=== PATIENT | male | born 1990 | race African-American/Black ===

== ENCOUNTER 2017-04-11 22:17 | Emergency (ER) | payer MEDICAID ==
[~2017-04-11] VITALS: Ht 190.5 cm; Wt 72.1 kg
[~2017-04-11 22:17] MED LIST: BISA10SU12; CIPR-217 PO; CYCL5TAB; DOCU100C; METH750T3 PO; OXYB5TAB62; OXYB5TAB62 PO; TEMA30CA PO
[2017-04-11 22:30] VITALS: BP 121/71
== END 2017-04-12 02:53 | disposition home or self-care (01) ==
LOC: ER 22:17
DX: N39.0 Urinary tract infection, site not specified (principal); Z46.82 Encounter for fitting and adjustment of non-vascular catheter
CPT/HCPCS: 51702

== ENCOUNTER 2017-06-24 13:04 | Emergency (ER) | payer MEDICAID ==
[~2017-06-24] VITALS: Ht 190.5 cm; Wt 58.1 kg
[2017-06-24 13:15] VITALS: BP 115/81
== END 2017-06-24 14:20 | disposition left against medical advice (07) ==
LOC: ER 13:04
DX: Z43.3 Encounter for attention to colostomy (principal); Z53.21 Procedure and treatment not carried out due to patient leaving prior to being seen by health care provider

== ENCOUNTER 2017-08-08 08:33 | Emergency (ER) | payer MEDICAID ==
[~2017-08-08] VITALS: Ht 190.5 cm; Wt 59.0 kg
[2017-08-08] MEDS ORDERED: SODIUM CHLORIDE 0.9% 1,000 ML IVB ONE (08:58)
[2017-08-08] MEDS ORDERED: PROMETHAZINE HCL 25 MG/ML 1ML IV PRN (09:00)
[2017-08-08 09:09] LABS: Basophils # (auto) 0 uL; Eosinophils # (auto) 0 uL; Eosinophils % (auto) 0.4 % (0.0-7.0); Hematocrit 31.2 % (41.0-53.0); Hemoglobin 9.8 g/dL (13.5-17.5); Lymphocytes # (auto) 0.5 uL; Mean Corpuscular Hgb Conc. 31.6 g/dL (32.0-36.0); Monocytes # (auto) 0.6 uL; Neutrophils # (auto) 11.1 uL
[2017-08-08 09:11] LABS: Basophils % (auto) 0.3 % (0.0-2.0); Lymphocytes % (auto) 4.3 % (10.0-50.0); Mean Corpuscular Hemoglobin 21.5 pg (28.0-32.0); Nucleated Red Blood Cells % 0.1 %; Platelet Count (auto) 513 10^3/uL (140-450); Red Blood Cells 4.58 10^6/uL (4.5-5.90); Red Cell Distribution Width 17.6 % (11.8-14.3); White Blood Cell 12.3 10^3/uL (4.4-10.8)
[2017-08-08 09:27] LABS: Albumin 2.4 g/dL (3.4-5.0); BUN/Creatinine Ratio 13.2; Calcium 8.7 mg/dL (8.5-10.1); Potassium 3.8 mmol/L (3.5-5.1)
[2017-08-08 09:30] LABS: Bilirubin, Total 0.2 mg/dL (0.2-1.0); Total Protein 9.1 g/dL (6.4-8.2)
[2017-08-08 09:33] LABS: Magnesium 2.1 mg/dL (1.6-2.6)
[2017-08-08 14:14] LABS: Urine Bacteria FEW /hpf (None Seen); Urine Blood TRACE /uL (Negative); Urine Mucus FEW (None Seen); Urine Specific Gravity 1.025 (1.001-1.035); Urine WBC 25 /hpf (0 - 3)
[2017-08-08 14:30] VITALS: BP 116/62
== END 2017-08-08 15:31 | disposition home or self-care (01) ==
LOC: ER 08:33 → EDBD 08:33 → ER 15:31
DX: K52.9 Noninfective gastroenteritis and colitis, unspecified (principal); D50.9 Iron deficiency anemia, unspecified; N39.0 Urinary tract infection, site not specified; E43 Unspecified severe protein-calorie malnutrition; G82.20 Paraplegia, unspecified; Z68.1 Body mass index [BMI] 19.9 or less, adult; Z98.890 Other specified postprocedural states
CPT/HCPCS: 36415; 80053; 81001; 83690; 83735; 85025; 96361; 96374; 99284; J2550; J7030

== ENCOUNTER 2017-12-23 16:58 | Emergency (ER) | payer MEDICAID ==
[~2017-12-23] VITALS: Ht 190.5 cm; Wt 61.7 kg
[2017-12-23 18:30] LABS: Basophils # (auto) 0.1 uL; Eosinophils # (auto) 0.1 uL; Hematocrit 42.5 % (41.0-53.0); Lymphocytes # (auto) 2.3 uL; Mean Corpuscular Hemoglobin 22.3 pg (28.0-32.0); Nucleated Red Blood Cells % 0.1 %; Red Cell Distribution Width 17.7 % (11.8-14.3)
[2017-12-23 18:31] LABS: Basophils % (auto) 1.2 % (0.0-2.0); Eosinophils % (auto) 1.2 % (0.0-7.0); Hemoglobin 13.6 g/dL (13.5-17.5); Lymphocytes % (auto) 37.9 % (10.0-50.0); Mean Corpuscular Volume 69.5 fL (80.0-100.0); Monocytes # (auto) 0.6 uL; Monocytes % (auto) 9.1 % (0.0-12.0); Neutrophils # (auto) 3.1 uL; Neutrophils % (auto) 50.6 % (37.0-80.0); Platelet Count (auto) 405 10^3/uL (140-450); Red Blood Cells 6.13 10^6/uL (4.5-5.90); White Blood Cell 6.2 10^3/uL (4.4-10.8)
[2017-12-23 18:44] LABS: Albumin 3.2 g/dL (3.4-5.0); BUN/Creatinine Ratio 15.5; Bilirubin, Total 0.2 mg/dL (0.2-1.0); Potassium 4.1 mmol/L (3.5-5.1); Total Protein 9.5 g/dL (6.4-8.2)
[2017-12-23 19:53] LABS: Urine Amorphous Crystal FEW /hpf (None Seen); Urine Bacteria MOD /hpf (None Seen); Urine Blood 2+ /uL (Negative); Urine Mucus FEW (None Seen); Urine Specific Gravity 1.026 (1.001-1.035); Urine WBC 265 /hpf (0 - 3); Urine WBC Clumps PRESENT /hpf (None Seen)
[2017-12-24 01:47] VITALS: BP 111/85
== END 2017-12-24 01:50 | disposition home or self-care (01) ==
LOC: ER 16:58
DX: N39.0 Urinary tract infection, site not specified (principal); T83.098A Other mechanical complication of other urinary catheter, initial encounter; J45.909 Unspecified asthma, uncomplicated; Z79.899 Other long term (current) drug therapy; Y84.6 Urinary catheterization as the cause of abnormal reaction of the patient, or of later complication, without mention of misadventure at the time of the procedure; Y92.89 Other specified places as the place of occurrence of the external cause
CPT/HCPCS: 36415; 51702; 80053; 81001; 85025

== ENCOUNTER 2018-03-31 19:56 | Emergency (ER) | payer MEDICAID ==
[~2018-03-31] VITALS: Ht 190.5 cm; Wt 74.4 kg
[~2018-03-31 19:56] MED LIST changes: +OXYB5TAB24; +OXYB5TAB24 PO; -OXYB5TAB62; -OXYB5TAB62 PO
[2018-03-31 21:03] LABS: Basophils # (auto) 0.1 uL; Basophils % (auto) 0.8 % (0.0-2.0); Eosinophils # (auto) 0 uL; Eosinophils % (auto) 0.3 % (0.0-7.0); Hematocrit 38.3 % (41.0-53.0); Hemoglobin 11.8 g/dL (13.5-17.5); Lymphocytes # (auto) 1.4 uL; Lymphocytes % (auto) 14.7 % (10.0-50.0); Mean Corpuscular Hgb Conc. 30.7 g/dL (32.0-36.0); Mean Corpuscular Volume 71.6 fL (80.0-100.0); Monocytes # (auto) 0.6 uL; Monocytes % (auto) 6.4 % (0.0-12.0); Neutrophils # (auto) 7.2 uL; Neutrophils % (auto) 77.8 % (37.0-80.0); Platelet Count (auto) 403 10^3/uL (140-450); Red Blood Cells 5.36 10^6/uL (4.5-5.90); Red Cell Distribution Width 17.4 % (11.8-14.3); White Blood Cell 9.3 10^3/uL (4.4-10.8)
[2018-03-31 21:15] LABS: Albumin 2.7 g/dL (3.4-5.0); BUN/Creatinine Ratio 10.8; Calcium 8.1 mg/dL (8.5-10.1); Potassium 3.7 mmol/L (3.5-5.1)
[2018-03-31 21:17] LABS: Bilirubin, Total 0.2 mg/dL (0.2-1.0); Total Protein 8.9 g/dL (6.4-8.2)
[2018-03-31] MEDS ORDERED: IPRATROPIUM BROM 0.5 MG/2.5ML INH SOL NEB ONE ×2 (21:30→21:45)
[2018-03-31] MEDS ORDERED: ALBUTEROL SULF 2.5 MG/0.5ML(0.5%) NEB SOLN NEB ONE ×2 (21:30→21:45)
[2018-03-31] MEDS ORDERED: ALBUTEROL SULF 2.5 MG/0.5ML(0.5%) NEB SOLN ONE (21:33)
[2018-03-31] MEDS ORDERED: IPRATROPIUM BROM 0.5 MG/2.5ML INH SOL ONE (21:34)
[2018-03-31 21:56] VITALS: BP 113/75
== END 2018-03-31 22:18 | disposition home or self-care (01) ==
LOC: ER 20:01
DX: N39.0 Urinary tract infection, site not specified (principal); J45.909 Unspecified asthma, uncomplicated
CPT/HCPCS: 36415; 71045; 80053; 85025; 94640; 99285; J7030; J7611; J7644

== ENCOUNTER 2018-04-11 00:33 | Emergency (ER) | payer MEDICAID ==
[~2018-04-11] VITALS: Ht 190.5 cm; Wt 60.8 kg
[2018-04-11 01:17] LABS: Urine Bacteria MANY /hpf (None Seen); Urine Blood Negative /uL (Negative); Urine Mucus FEW (None Seen); Urine Specific Gravity 1.013 (1.001-1.035); Urine WBC 164 /hpf (0 - 3); Urine WBC Clumps PRESENT /hpf (None Seen)
[2018-04-11] MEDS ORDERED: ALBUTEROL SULF 2.5 MG/0.5ML(0.5%) NEB SOLN NEB ONE (01:30)
[2018-04-11] MEDS ORDERED: IPRATROPIUM BROM 0.5 MG/2.5ML INH SOL NEB ONE (01:30)
[2018-04-11 01:55] LABS: Basophils # (auto) 0.1 uL; Hemoglobin 11.6 g/dL (13.5-17.5); Lymphocytes # (auto) 3.3 uL; Monocytes # (auto) 1.4 uL
[2018-04-11 01:56] LABS: Eosinophils # (auto) 0.2 uL; Eosinophils % (auto) 1.5 % (0.0-7.0); Hematocrit 37.2 % (41.0-53.0); Lymphocytes % (auto) 30.2 % (10.0-50.0); Mean Corpuscular Hgb Conc. 31.3 g/dL (32.0-36.0); Mean Corpuscular Volume 69.3 fL (80.0-100.0); Monocytes % (auto) 12.3 % (0.0-12.0); Red Blood Cells 5.36 10^6/uL (4.5-5.90); Red Cell Distribution Width 17.3 % (11.8-14.3)
[2018-04-11 01:59] LABS: Platelet Count (auto) 522 10^3/uL (140-450)
[2018-04-11 02:13] LABS: Albumin 2.8 g/dL (3.4-5.0); BUN/Creatinine Ratio 23.2; Calcium 8.5 mg/dL (8.5-10.1); Potassium 3.8 mmol/L (3.5-5.1)
[2018-04-11 02:20] LABS: Bilirubin, Total 0.2 mg/dL (0.2-1.0); Total Protein 9.7 g/dL (6.4-8.2)
[2018-04-11 02:38] VITALS: BP 144/91
[2018-04-11] MEDS ORDERED: cefTRIAXone 1GM/50ML D5W 50 ML IV ONE (02:45)
== END 2018-04-11 03:32 | disposition home or self-care (01) ==
LOC: ER 00:33
DX: J20.9 Acute bronchitis, unspecified (principal); N39.0 Urinary tract infection, site not specified; J45.909 Unspecified asthma, uncomplicated; F12.10 Cannabis abuse, uncomplicated
CPT/HCPCS: 36415; 71045; 80053; 81001; 85025; 94640; 96374; 99285; J0696; J7611; J7644

== ENCOUNTER 2020-04-15 06:06 | Inpatient (IN) | payer MEDICAID ==
[~2020-04-15] VITALS: Ht 170.2 cm; Wt 71.3 kg
[~2020-04-15 06:06] MED LIST changes: -CIPR-217 PO; +FER325T PO; +LINE1TAB6 PO
[2020-04-15] MEDS ORDERED: cefTRIAXone 1GM/50ML D5W 50 ML IV ONE (07:00)
[2020-04-15] MEDS ORDERED: DexAMETHasone SOD PHOS 10MG/1ML VIAL INJ IV ONE (07:00)
[2020-04-15] MEDS ORDERED: SODIUM CHLORIDE 0.9% 1,000 ML IV ONE (07:00)
[2020-04-15 07:03] LABS: Hemoglobin 11.2 g/dL (13.5-17.5)
[2020-04-15 07:04] LABS: Hematocrit 35.3 % (41.0-53.0); Mean Corpuscular Hemoglobin 21.2 pg (28.0-32.0); Mean Corpuscular Hgb Conc. 31.8 g/dL (32.0-36.0); Mean Corpuscular Volume 66.7 fL (80.0-100.0); Platelet Count (auto) 298 10^3/uL (140-450); Red Cell Distribution Width 18.6 % (11.8-14.3); White Blood Cell 25.2 10^3/uL (4.4-10.8)
[2020-04-15 07:07] LABS: Basophils % (manual) 0 (0.0-2.0); Blast Cells 0; Eosinophils % (manual) 0 (0-7); Metamyelocytes % 0; Myelocytes % 0; Promyelocytes % 0; Reactive Lymphocytes 0
[2020-04-15 07:24] LABS: Albumin 2.4 g/dL (3.4-5.0); BUN/Creatinine Ratio 15.2; Calcium 8.8 mg/dL (8.5-10.1); Potassium 4.8 mmol/L (3.5-5.1)
[2020-04-15 07:27] LABS: Bilirubin, Total 0.7 mg/dL (0.2-1.0); Total Protein 8.8 g/dL (6.4-8.2)
[2020-04-15 07:32] LABS: Band Neutrophils % (manual) 1; Lymphocytes % (manual) 3 (10.0-50.0); Monocytes % (manual) 2 (0-12)
[2020-04-15 07:48] LABS: CRP High Sensitivity > 19 mg/dL (< 0.3); Lactate Dehydrogenase 402 U/L (87-241)
[2020-04-15] MEDS ORDERED: VANCOMYCIN 1GM/250ML 250 ML IV ONE (10:45)
[2020-04-15] MEDS ORDERED: CEFEPIME 1 GM in SODIUM CHL 0.9% 50 ML IV ONE (10:45)
[2020-04-15 11:20] LABS: Urine Bacteria FEW /hpf (None Seen); Urine Blood 2+ /uL (Negative); Urine Mucus FEW (None Seen); Urine Specific Gravity 1.018 (1.001-1.035); Urine WBC 351 /hpf (0 - 3); Urine WBC Clumps PRESENT /hpf (None Seen)
[2020-04-15] MEDS ORDERED: VANCOMYCIN PER PHARMACY 0 MG IV SCH (14:30)
[2020-04-15] MEDS ORDERED: NITROGLYCERIN 0.4 MG SL TAB SL PRN (14:30)
[2020-04-15] MEDS ORDERED: MORPHINE SULF INJ 2 MG/ML SYRINGE 1ML IV PRN (14:30)
[2020-04-15] MEDS ORDERED: PRED20TA2 PO (18:38)
[2020-04-15] MEDS ORDERED: OXYB10TA14 PO (18:38)
[2020-04-15 22:00] VITALS: BP 109/71
[2020-04-15] MEDS: CEFEPIME 1 GM in SODIUM CHL 0.9% 50 ML IV SCH (22:00)
[2020-04-15] MEDS: VANCOMYCIN 1GM/250ML 250 ML IV SCH (22:00)
[2020-04-15 22:21] VITALS: BP 99/63
[2020-04-16 05:44] VITALS: BP 110/79
[2020-04-16] MEDS ORDERED: PIPERACILLIN-TAZOB 3.375GM 100 ML IV SCH (06:00)
[2020-04-16] MEDS: VANCOMYCIN 1GM/250ML 250 ML IV SCH (07:10)
[2020-04-16 09:00] VITALS: BP 107/62
[2020-04-16 09:20] LABS: Basophils # (auto) 0 10 ^3/uL (0-0.2); Eosinophils # (auto) 0 10 ^3/uL (0-0.8); Eosinophils % (auto) 0.1 % (0.0-7.0); Monocytes # (auto) 1.8 10 ^3/uL (0-1.3); Neutrophils % (auto) 83.1 % (37.0-80.0)
[2020-04-16 09:23] LABS: Hematocrit 40.8 % (41.0-53.0); Hemoglobin 12.3 g/dL (13.5-17.5); Lymphocytes # (auto) 1.9 10 ^3/uL (0.4-5.4); Lymphocytes % (auto) 8.5 % (10.0-50.0); Mean Corpuscular Hgb Conc. 30.2 g/dL (32.0-36.0); Mean Corpuscular Volume 69.5 fL (80.0-100.0); Monocytes % (auto) 8.3 % (0.0-12.0); Neutrophils # (auto) 18.5 10 ^3/uL (1.6-8.6); Nucleated Red Blood Cells % 0.1 %; Platelet Count (auto) 336 10^3/uL (140-450); Red Blood Cells 5.88 10^6/uL (4.5-5.90); Red Cell Distribution Width 18.8 % (11.8-14.3); White Blood Cell 22.2 10^3/uL (4.4-10.8)
[2020-04-16] MEDS: ALBUTEROL SULF 2.5 MG/0.5ML(0.5%) NEB SOLN NEB PRN (09:33)
[2020-04-16 09:40] LABS: Potassium 3.7 mmol/L (3.5-5.1)
[2020-04-16 09:48] LABS: Albumin 2.7 g/dL (3.4-5.0); Bilirubin, Total 0.3 mg/dL (0.2-1.0); Calcium 9.2 mg/dL (8.5-10.1); Total Protein 9.8 g/dL (6.4-8.2)
[2020-04-16] MEDS: ENOXAPARIN SOD 40 MG/0.4 ML SYRINGE SC SCH (10:07)
[2020-04-16] MEDS: PANTOPRAZOLE 40 MG TAB PO SCH (10:19)
[2020-04-16] MEDS: CEFEPIME 1 GM in SODIUM CHL 0.9% 50 ML IV SCH (10:21)
[2020-04-16 13:30] VITALS: BP 104/54
[2020-04-16] MEDS: CEFTRIAXONE SODIUM 2 GM in D5W 5% 50 ML IV SCH (15:30)
[2020-04-16 17:00] VITALS: BP 109/58
[2020-04-16] MEDS ORDERED: ACETAMINOPHEN 325 MG TAB PO PRN (20:00)
[2020-04-16] MEDS ORDERED: HYDROcodone-ACET 5/325MG TAB PO PRN (20:00)
[2020-04-16 22:05] VITALS: BP 107/59
[2020-04-17 05:00] VITALS: BP 126/59
[2020-04-17] MEDS: ALBUTEROL SULF 2.5 MG/0.5ML(0.5%) NEB SOLN NEB PRN ×2 (05:27→15:59)
[2020-04-17 05:59] LABS: Basophils # (auto) 0.1 10 ^3/uL (0-0.2); Basophils % (auto) 0.7 % (0.0-2.0); Eosinophils # (auto) 0 10 ^3/uL (0-0.8); Eosinophils % (auto) 0.3 % (0.0-7.0); Hematocrit 39.1 % (41.0-53.0); Hemoglobin 12.2 g/dL (13.5-17.5); Lymphocytes % (auto) 17.4 % (10.0-50.0); Mean Corpuscular Hemoglobin 21.1 pg (28.0-32.0); Mean Corpuscular Hgb Conc. 31.3 g/dL (32.0-36.0); Mean Corpuscular Volume 67.4 fL (80.0-100.0); Monocytes # (auto) 1.1 10 ^3/uL (0-1.3); Neutrophils % (auto) 71.6 % (37.0-80.0); Platelet Count (auto) 364 10^3/uL (140-450); Red Cell Distribution Width 18.7 % (11.8-14.3); White Blood Cell 11.2 10^3/uL (4.4-10.8)
[2020-04-17 06:20] LABS: BUN/Creatinine Ratio 16.5; Calcium 9.3 mg/dL (8.5-10.1); Potassium 3.6 mmol/L (3.5-5.1)
[2020-04-17 09:00] VITALS: BP 106/54
[2020-04-17] MEDS ORDERED: cefTRIAXone 1GM/50ML D5W 50 ML IV SCH (09:00)
[2020-04-17] MEDS: PANTOPRAZOLE 40 MG TAB PO SCH (10:20)
[2020-04-17] MEDS: CEFTRIAXONE SODIUM 2 GM in D5W 5% 50 ML IV SCH (10:20)
[2020-04-17] MEDS: ENOXAPARIN SOD 40 MG/0.4 ML SYRINGE SC SCH (10:21)
[2020-04-17] MEDS ORDERED: CIPR500T4 PO (10:59)
[2020-04-17 13:00] VITALS: BP_SYST 108; BP_SYST 123; BP_DIAS 66; BP_DIAS 68
[2020-04-17 17:00] VITALS: BP 125/66
== END 2020-04-17 19:30 | disposition home health service (06) | DRG 720 ==
LOC: EDBD 06:06 → ER 06:06 → TELE 06:07 → TELE-EAST 23:57 → TELE-CENTR 04-16 04:10
PROVIDERS: ADMIT Internal Medicine; ATTEND Internal Medicine
DX: A41.9 Sepsis, unspecified organism (principal); G82.20 Paraplegia, unspecified; Z93.3 Colostomy status; L89.154 Pressure ulcer of sacral region, stage 4; N13.6 Pyonephrosis; B96.1 Klebsiella pneumoniae [K. pneumoniae] as the cause of diseases classified elsewhere; J47.0 Bronchiectasis with acute lower respiratory infection; F12.90 Cannabis use, unspecified, uncomplicated; J43.9 Emphysema, unspecified; M86.60 Other chronic osteomyelitis, unspecified site; Z20.828 Contact with and (suspected) exposure to other viral communicable diseases; Z82.3 Family history of stroke; F32.9 Major depressive disorder, single episode, unspecified; R79.82 Elevated C-reactive protein (CRP); Y84.6 Urinary catheterization as the cause of abnormal reaction of the patient, or of later complication, without mention of misadventure at the time of the procedure; B95.2 Enterococcus as the cause of diseases classified elsewhere; R00.1 Bradycardia, unspecified
CPT/HCPCS: 36415; 71045; 71260; 74177; 80048; 80053; 81001; 82728; 83605; 83615; 83880; 84443; 84484; 85007; 85025; 85027; 86141; 87040; 87077; 87086; 87088; 87186; 87426; 94640; 96365; 96367; 96375; 99291; G0378; J0696; J1100; J2543; J7060

== ENCOUNTER 2023-10-31 08:06 | Inpatient (IN) | payer MEDICAID ==
[~2023-10-31] VITALS: Ht 190.5 cm; Wt 58.0 kg
[2023-10-31] VITALS (7 sets, daily range): BP systolic 117–123; BP diastolic 68–83; PULSE 68–103; RESP 16–20; TEMP 98.1–98.2; O2SAT 96–100
[~2023-10-31 08:06] MED LIST changes: +ALBU0.084 NEB; +ALBU108A5 INH; +ALPR0.5T8 PO; +AMOX250C3 PO; +BECL80AE11 INH; +CEFD300C2 PO; +CIPR500T4 PO; +CYCL-837; -CYCL5TAB; -DOCU100C; +IBUP-1454 PO; -LINE1TAB6 PO; +METH-1182 PO; -METH750T3 PO; +OXYB10TA14 PO; -OXYB5TAB24; -OXYB5TAB24 PO; +SERT-160 PO; +TRAZ-227 PO; +[UNRECOGNIZED DRUG - CODE]
[2023-10-31 08:58] LABS: Basophils # (auto) 0.1 10 ^3/uL (0-0.2); Basophils % (auto) 0.9 % (0.0-2.0); Eosinophils # (auto) 0.1 10 ^3/uL (0-0.8); Eosinophils % (auto) 1.3 % (0.0-7.0); Hematocrit 37.4 % (41.0-53.0); Hemoglobin 11.7 g/dL (13.5-17.5); Lymphocytes # (auto) 2.4 10 ^3/uL (0.4-5.4); Lymphocytes % (auto) 22.2 % (10.0-50.0); Mean Corpuscular Hemoglobin 21.5 pg (28.0-32.0); Mean Corpuscular Hgb Conc. 31.2 g/dL (32.0-36.0); Mean Corpuscular Volume 69.1 fL (80.0-100.0); Monocytes # (auto) 1.1 10 ^3/uL (0-1.3); Monocytes % (auto) 9.9 % (0.0-12.0); Neutrophils % (auto) 65.7 % (37.0-80.0); Red Blood Cells 5.42 10^6/uL (4.5-5.90); Red Cell Distribution Width 17.9 % (11.8-14.3); White Blood Cell 10.7 10^3/uL (4.4-10.8)
[2023-10-31 09:31] LABS: Alanine Aminotransferase 11 U/L (7-40); Albumin 3.9 g/dL (3.2-4.8); Alkaline Phosphatase 92 U/L (46-116); Anion Gap 6 (5-15); Aspartate Aminotransferase 15 U/L (13-40); BUN/Creatinine Ratio 11.5 (10.0-20.0); Blood Urea Nitrogen 10 mg/dL (9-23); Calcium 9.4 mg/dL (8.5-10.1); Carbon Dioxide 28 mmol/L (20-30); Chloride 104 mmol/L (98-107); Glucose 93 mg/dL (74-106); Magnesium 1.7 mg/dL (1.6-2.6); Potassium 3.7 mmol/L (3.5-5.1); Sodium 138 mmol/L (136-145)
[2023-10-31 09:32] LABS: Bilirubin, Total 0.3 mg/dL (0.2-1.0); Total Protein 8.3 g/dL (5.7-8.2)
[2023-10-31] MEDS ORDERED: ALPR0.25 PO (12:16)
[2023-10-31 14:33] LABS: Urine Bacteria FEW /hpf (None Seen); Urine Blood 1+ /uL (Negative); Urine Clarity Turbid (Clear); Urine Color Colorless (Yellow); Urine Protein, UAD Negative (Negative); Urine Specific Gravity 1.005 (1.001-1.035); Urine Urobilinogen Normal (Negative); Urine WBC 38 /hpf (0 - 3); Urine pH 6.5 (5.0-9.0)
[2023-10-31] MEDS ORDERED: DOCUSATE SOD 100 MG CAP PO PRN (15:30)
[2023-10-31] MEDS ORDERED: MORPHINE SULFATE INJ 2 MG/ml SYRG IV PRN (15:30)
[2023-10-31] MEDS ORDERED: NITROGLYCERIN 0.4 MG SL TAB SL PRN (15:30)
[2023-10-31] MEDS ORDERED: ACETAMINOPHEN 325 MG TAB PO PRN (15:30)
[2023-10-31] MEDS: cefTRIAXone 1GM/50ML D5W 50 ML IV ONE (15:32)
[2023-10-31] MEDS: IPRATROPIUM BROM 0.5 MG/2.5ML INH SOL NEB SCH (18:58)
[2023-10-31] MEDS: ALBUTEROL SULF 2.5 MG/0.5ML(0.5%) NEB SOLN NEB SCH (18:58)
[2023-10-31] MEDS: HYDROcodone-ACET 5/325MG TAB PO PRN (20:07)
[2023-10-31] MEDS: traZODone HCL 50 MG TAB PO SCH (22:00)
[2023-10-31] MEDS: METHOCARBAMOL 500 MG TAB PO SCH (22:11)
[2023-11-01] VITALS (10 sets, daily range): BP systolic 103–133; BP diastolic 52–81; PULSE 59–91; RESP 16–20; TEMP 98–98.3; O2SAT 93–100
[2023-11-01] MEDS: MORPHINE SULFATE INJ 2 MG/ml SYRG IV PRN (00:41)
[2023-11-01 05:13] LABS: Basophils # (auto) 0.1 10 ^3/uL (0-0.2); Basophils % (auto) 0.8 % (0.0-2.0); Eosinophils # (auto) 0.2 10 ^3/uL (0-0.8); Eosinophils % (auto) 2.1 % (0.0-7.0); Hematocrit 36.5 % (41.0-53.0); Hemoglobin 11.4 g/dL (13.5-17.5); Lymphocytes # (auto) 2.6 10 ^3/uL (0.4-5.4); Lymphocytes % (auto) 35.1 % (10.0-50.0); Mean Corpuscular Hemoglobin 21.7 pg (28.0-32.0); Mean Corpuscular Hgb Conc. 31.2 g/dL (32.0-36.0); Mean Corpuscular Volume 69.7 fL (80.0-100.0); Monocytes % (auto) 12.9 % (0.0-12.0); Neutrophils # (auto) 3.7 10 ^3/uL (1.6-8.6); Neutrophils % (auto) 49.1 % (37.0-80.0); Red Blood Cells 5.23 10^6/uL (4.5-5.90); Red Cell Distribution Width 18.2 % (11.8-14.3); White Blood Cell 7.5 10^3/uL (4.4-10.8)
[2023-11-01 05:44] LABS: Albumin 3.8 g/dL (3.2-4.8); Alkaline Phosphatase 82 U/L (46-116); Anion Gap 9 (5-15); Aspartate Aminotransferase 10 U/L (13-40); BUN/Creatinine Ratio 15.3 (10.0-20.0); Blood Urea Nitrogen 11 mg/dL (9-23); Calcium 9.7 mg/dL (8.7-10.4); Carbon Dioxide 24 mmol/L (20-30); Chloride 105 mmol/L (98-107); Glucose 85 mg/dL (74-106); Potassium 3.5 mmol/L (3.5-5.1); Sodium 138 mmol/L (136-145)
[2023-11-01 05:45] LABS: Bilirubin, Total 0.3 mg/dL (0.2-1.0)
[2023-11-01 05:51] LABS: Alanine Aminotransferase < 9 U/L (7-40)
[2023-11-01] MEDS: SERTRALINE HCL 50 MG TAB PO SCH (06:11)
[2023-11-01] MEDS: ONDANSETRON HCL 4 MG/2 ML VIAL IV PRN (06:51)
[2023-11-01] MEDS: cefTRIAXone 1GM/50ML D5W 50 ML IV SCH (09:14)
[2023-11-01] MEDS: ALPRAZolam 0.5 MG TAB PO SCH (10:30)
[2023-11-01] MEDS: ENOXAPARIN SOD 40 MG/0.4 ML SYRINGE SC SCH (10:31)
[2023-11-01] MEDS ORDERED: FLUT250M2 INH (16:29)
[2023-11-01] MEDS ORDERED: TIZA4CAP14 PO (16:29)
[2023-11-01] MEDS ORDERED: ACET-6 PO (16:29)
[2023-11-01] MEDS ORDERED: HYDR-4798 PO (16:29)
[2023-11-02] VITALS (18 sets, daily range): BP systolic 103–118; BP diastolic 52–82; PULSE 55–86; RESP 14–20; TEMP 97.6–98.2; O2SAT 96–100
[2023-11-02] MEDS: ALBUTEROL SULF 2.5 MG/0.5ML(0.5%) NEB SOLN ONE (06:49)
[2023-11-02] MEDS: IPRATROPIUM BROM 0.5 MG/2.5ML INH SOL ONE (06:49)
[2023-11-03] VITALS (15 sets, daily range): BP systolic 108–124; BP diastolic 58–72; PULSE 54–92; RESP 14–19; TEMP 97.9–98.7; O2SAT 95–100
[2023-11-03] MEDS ORDERED: ALBUTEROL SULF 2.5 MG/0.5ML(0.5%) NEB SOLN ONE ×2 (02:21→07:16)
[2023-11-03] MEDS ORDERED: IPRATROPIUM BROM 0.5 MG/2.5ML INH SOL ONE ×2 (02:22→07:16)
[2023-11-03] MEDS: IPRATROPIUM BROM 0.5 MG/2.5ML INH SOL ONE (11:03)
[2023-11-03] MEDS: ALBUTEROL SULF 2.5 MG/0.5ML(0.5%) NEB SOLN ONE (11:03)
[2023-11-04] VITALS (10 sets, daily range): BP systolic 101–111; BP diastolic 63–72; PULSE 51–85; RESP 14–20; TEMP 97.8–98.2; O2SAT 95–100
[2023-11-04] MEDS: IPRATROPIUM BROM 0.5 MG/2.5ML INH SOL ONE (06:00)
[2023-11-04] MEDS: ALBUTEROL SULF 2.5 MG/0.5ML(0.5%) NEB SOLN ONE (06:01)
[2023-11-05] VITALS (16 sets, daily range): BP systolic 106–117; BP diastolic 60–74; PULSE 51–83; RESP 14–22; TEMP 97.6–98; O2SAT 94–100
[2023-11-06] VITALS (9 sets, daily range): BP systolic 111–140; BP diastolic 65–93; PULSE 61–110; RESP 18–20; TEMP 97.7–98.3; O2SAT 95–100
== END 2023-11-06 19:15 | disposition left against medical advice (07) | DRG 466 ==
LOC: EDBD 08:06 → ER 08:06 → OVERFLOW 15:26 → CENTRAL 23:30
PROVIDERS: ADMIT Internal Medicine; ATTEND Internal Medicine
DX: T83.031A Leakage of indwelling urethral catheter, initial encounter (principal); L89.154 Pressure ulcer of sacral region, stage 4; G82.20 Paraplegia, unspecified; N30.90 Cystitis, unspecified without hematuria; Y83.8 Other surgical procedures as the cause of abnormal reaction of the patient, or of later complication, without mention of misadventure at the time of the procedure; J44.9 Chronic obstructive pulmonary disease, unspecified; M94.0 Chondrocostal junction syndrome [Tietze]; Z53.29 Procedure and treatment not carried out because of patient's decision for other reasons; D50.9 Iron deficiency anemia, unspecified; Z93.3 Colostomy status; Z93.1 Gastrostomy status; Z82.3 Family history of stroke; Y92.89 Other specified places as the place of occurrence of the external cause
CPT/HCPCS: 36415; 71046; 80053; 81001; 83735; 84484; 85025; 87081; 87086; 93005; 94640; 96365; G0378; J2405

== ENCOUNTER 2024-03-29 | Inpatient (IN) | payer MEDICAID ==
[2024-03-29] VITALS (8 sets, daily range): BP systolic 109–114; BP diastolic 56–72; PULSE 51–98; RESP 16–18; TEMP 97.6–98.2; O2SAT 96–100
[~2024-03-29] VITALS: Ht 170.2 cm; Wt 59.7 kg
[~2024-03-29] MED LIST changes: +ACET-6 PO; -CEFD300C2 PO; -CIPR500T4 PO; +FLUT250M2 INH; +HYDR-4798 PO; +TIZA4CAP14 PO
[2024-03-29] MEDS: ACETAMINOPHEN 325 MG TAB PO ONE (00:49)
[2024-03-29] MEDS: SODIUM CHLORIDE 0.9% 1,000 ML IV ONE (00:57)
[2024-03-29 01:17] LABS: Chloride 103 mmol/L (98-107); Potassium 3.6 mmol/L (3.5-5.1); Sodium 136 mmol/L (136-145)
[2024-03-29 01:18] LABS: Anion Gap 9 (5-15); Basophils # (auto) 0.1 10 ^3/uL (0-0.2); Carbon Dioxide 24 mmol/L (20-31); Eosinophils # (auto) 0.1 10 ^3/uL (0-0.8); Lymphocytes # (auto) 2.2 10 ^3/uL (0.4-5.4)
[2024-03-29 01:19] LABS: Calcium 9.5 mg/dL (8.7-10.4)
[2024-03-29 01:20] LABS: Basophils % (auto) 0.9 % (0.0-2.0); Eosinophils % (auto) 1.6 % (0.0-7.0); Hematocrit 37.6 % (41.0-53.0); Hemoglobin 12.1 g/dL (13.5-17.5); Mean Corpuscular Hemoglobin 22.4 pg (28.0-32.0); Mean Corpuscular Hgb Conc. 32.2 g/dL (32.0-36.0); Mean Corpuscular Volume 69.6 fL (80.0-100.0); Monocytes # (auto) 1.1 10 ^3/uL (0-1.3); Monocytes % (auto) 14.7 % (0.0-12.0); Neutrophils # (auto) 3.9 10 ^3/uL (1.6-8.6); Neutrophils % (auto) 52.8 % (37.0-80.0); Nucleated Red Blood Cells % 0.1 %; Platelet Count (auto) 292 10^3/uL (140-450); Red Blood Cells 5.41 10^6/uL (4.5-5.90); Red Cell Distribution Width 18.5 % (11.8-14.3); White Blood Cell 7.4 10^3/uL (4.4-10.8)
[2024-03-29 01:23] LABS: Glucose 85 mg/dL (74-106)
[2024-03-29 01:24] LABS: BUN/Creatinine Ratio 12.1 (10.0-20.0); Blood Urea Nitrogen 7 mg/dL (9-23)
[2024-03-29 01:53] LABS: Hypochromia Moderate
[2024-03-29 01:54] LABS: Large Platelets FEW; Platelet Estimate Adequa; Stomatocytes Few
[2024-03-29 02:15] LABS: COVID19 ANTIGEN SOFIA FIA NEGATIVE (NEGATIVE); Rapid Influenza A Negative (Negative); Rapid Influenza B Negative (Negative)
[2024-03-29] MEDS: VANCOMYCIN 1GM/200ML 200 ML IV ONE (02:40)
[2024-03-29] MEDS: MORPHINE SULFATE 4 MG/ML SYR/VIAL IV ONE (02:45)
[2024-03-29] MEDS: ONDANSETRON HCL 4 MG/2 ML VIAL IV ONE (02:46)
[2024-03-29 03:11] LABS: Urine Bacteria MANY /hpf (None Seen); Urine Blood 1+ /uL (Negative); Urine Clarity Turbid (Clear); Urine Mucus FEW (None Seen); Urine Protein, UAD TRACE (Negative); Urine Specific Gravity 1.022 (1.001-1.035); Urine Urobilinogen Normal (Negative); Urine WBC 69 /hpf (0 - 3); Urine WBC Clumps PRESENT /hpf (None Seen)
[2024-03-29 03:23] LABS: Urine Color STRAW (Yellow)
[2024-03-29] MEDS ORDERED: VANCOMYCIN PER PHARMACY 0 MG IV SCH (05:00)
[2024-03-29] MEDS ORDERED: ONDANSETRON HCL 4 MG/2 ML VIAL IV PRN (05:00)
[2024-03-29] MEDS ORDERED: ACETAMINOPHEN 325 MG TAB PO PRN (05:00)
[2024-03-29] MEDS ORDERED: DOCUSATE SOD 100 MG CAP PO PRN (05:00)
[2024-03-29] MEDS: cefTRIAXone 1GM/50ML D5W 50 ML IV ONE (05:15)
[2024-03-29] MEDS: SODIUM CHLORIDE 0.9% 1,000 ML IV SCH (05:15)
[2024-03-29] MEDS ORDERED: NITROGLYCERIN 0.4 MG SL TAB SL PRN (07:00)
[2024-03-29] MEDS ORDERED: MORPHINE SULFATE INJ 2 MG/ml SYRG IV PRN (07:00)
[2024-03-29] MEDS: VANCOMYCIN 1GM/200ML 200 ML IV SCH (09:13)
[2024-03-29] MEDS: ALBUTEROL SULF 2.5 MG/0.5ML(0.5%) NEB SOLN NEB PRN (11:59)
[2024-03-29] MEDS: IPRATROPIUM BROM 0.5 MG/2.5ML INH SOL NEB PRN (11:59)
[2024-03-29] MEDS: MORPHINE SULFATE INJ 2 MG/ml SYRG IV PRN (12:18)
[2024-03-29] MEDS: levoFLOXacin 750MG 150 ML IV SCH (23:13)
[2024-03-30] VITALS (19 sets, daily range): BP systolic 100–116; BP diastolic 58–67; PULSE 53–93; RESP 15–20; TEMP 98–99.3; O2SAT 96–100
[2024-03-30] MEDS ORDERED: cefTRIAXone 1GM/50ML D5W 50 ML IV SCH (05:00)
[2024-03-30 06:11] LABS: Basophils # (auto) 0 10 ^3/uL (0-0.2); Basophils % (auto) 0.7 % (0.0-2.0); Eosinophils # (auto) 0.2 10 ^3/uL (0-0.8); Eosinophils % (auto) 3.3 % (0.0-7.0); Lymphocytes # (auto) 2.2 10 ^3/uL (0.4-5.4); Monocytes # (auto) 0.6 10 ^3/uL (0-1.3); Neutrophils # (auto) 2.1 10 ^3/uL (1.6-8.6); Nucleated Red Blood Cells % 0.1 %; White Blood Cell 5.1 10^3/uL (4.4-10.8)
[2024-03-30 06:15] LABS: Hematocrit 31.7 % (41.0-53.0); Mean Corpuscular Hemoglobin 22.2 pg (28.0-32.0); Mean Corpuscular Hgb Conc. 31.6 g/dL (32.0-36.0); Mean Corpuscular Volume 70.3 fL (80.0-100.0); Platelet Count (auto) 284 10^3/uL (140-450); Red Blood Cells 4.51 10^6/uL (4.5-5.90); Red Cell Distribution Width 18.9 % (11.8-14.3)
[2024-03-30 06:33] LABS: Albumin 3.3 g/dL (3.2-4.8); Alkaline Phosphatase 75 U/L (46-116); Anion Gap 3 (5-15); Aspartate Aminotransferase 10 U/L (13-40); Bilirubin, Total 0.2 mg/dL (0.2-1.0); Blood Urea Nitrogen 6 mg/dL (9-23); Calcium 9.1 mg/dL (8.7-10.4); Carbon Dioxide 28 mmol/L (20-31); Chloride 107 mmol/L (98-107); Glucose 84 mg/dL (74-106); Potassium 4.3 mmol/L (3.5-5.1); Sodium 138 mmol/L (136-145); Total Protein 7.2 g/dL (5.7-8.2)
[2024-03-30 06:38] LABS: Alanine Aminotransferase < 9 U/L (7-40)
[2024-03-30] MEDS ORDERED: BUPR150T18 PO (07:12)
[2024-03-30] MEDS: SERTRALINE HCL 50 MG TAB PO SCH (10:00)
[2024-03-30] MEDS: OXYBUTYNIN CHL 5 MG TAB PO SCH (10:00)
[2024-03-30] MEDS: buPROPion HCL 75 MG TAB PO SCH (10:00)
[2024-03-30] MEDS ORDERED: IPRATROPIUM BROM 0.5 MG/2.5ML INH SOL NEB SCH (10:00)
[2024-03-30] MEDS ORDERED: ALBUTEROL SULF 2.5 MG/0.5ML(0.5%) NEB SOLN NEB SCH (10:00)
[2024-03-30] MEDS: guaiFENesin 200 MG/10 ML UD PO SCH (10:15)
[2024-03-30] MEDS: AZITHROMYCIN 500MG/ 250ML 250 ML IV SCH (10:15)
[2024-03-30] MEDS: cefTRIAXone 1GM/50ML D5W 50 ML IV ONE (10:15)
[2024-03-30] MEDS: DOCUSATE SOD 100 MG CAP PO SCH (10:15)
[2024-03-30] MEDS: ACETYLCYSTEINE 10 %(100MG/ML) SOL 4ML NEB SCH (13:55)
[2024-03-30] MEDS: IPRATROPIUM BROM 0.5 MG/2.5ML INH SOL NEB SCH ×2 (13:56→23:43)
[2024-03-30] MEDS: ALBUTEROL SULF 2.5 MG/0.5ML(0.5%) NEB SOLN NEB SCH ×2 (13:56→23:43)
[2024-03-30] MEDS: traZODone HCL 50 MG TAB PO SCH (21:49)
[2024-03-30] MEDS: HYDROcodone-ACET 5/325MG TAB PO PRN (23:00)
[2024-03-31] VITALS (23 sets, daily range): BP systolic 103–143; BP diastolic 60–93; PULSE 53–86; RESP 14–20; TEMP 97.4–98.7; O2SAT 97–100
[2024-03-31] MEDS: cefTRIAXone 1GM/50ML D5W 50 ML IV SCH (09:25)
[2024-04-01] VITALS (21 sets, daily range): BP systolic 112–142; BP diastolic 71–81; PULSE 50–84; RESP 14–20; TEMP 97.8–98.3; O2SAT 97–100
[2024-04-01] MEDS: ALPRAZolam 0.5 MG TAB PO PRN (18:32)
[2024-04-02] VITALS (14 sets, daily range): BP systolic 110–125; BP diastolic 74–84; PULSE 55–88; RESP 16–18; TEMP 97.8–98.4; O2SAT 98–100
[2024-04-02] MEDS ORDERED: CEFP200T15 PO (09:24)
== END 2024-04-02 15:10 | disposition home or self-care (01) | DRG 139 ==
LOC: EDBD → ER → TELE-E-ADS 06:52 → TELE 06:52 → TELE-E-ADS 13:15
PROVIDERS: ADMIT Student in an Organized Health Care Education/Training Program; ATTEND Student in an Organized Health Care Education/Training Program
DX: J12.9 Viral pneumonia, unspecified (principal); G82.20 Paraplegia, unspecified; L89.314 Pressure ulcer of right buttock, stage 4; L89.324 Pressure ulcer of left buttock, stage 4; J45.901 Unspecified asthma with (acute) exacerbation; J15.9 Unspecified bacterial pneumonia; Z20.822 Contact with and (suspected) exposure to COVID-19; F32.A Depression, unspecified; N39.0 Urinary tract infection, site not specified; B96.1 Klebsiella pneumoniae [K. pneumoniae] as the cause of diseases classified elsewhere; Z93.3 Colostomy status
CPT/HCPCS: 36415; 71045; 80048; 80053; 80202; 81001; 85025; 87077; 87086; 87088; 87186; 87205; 87426; 87804; 94640; 94668; G0378; J2405

== ENCOUNTER 2024-04-19 05:44 | Inpatient (IN) | payer MEDICAID ==
[2024-04-19] VITALS (8 sets, daily range): BP systolic 91–103; BP diastolic 55–64; PULSE 51–68; RESP 16–18; TEMP 97.7–98.3; O2SAT 95–100
[~2024-04-19] VITALS: Ht 188 cm; Wt 55.0 kg
[~2024-04-19 05:44] MED LIST changes: -AMOX250C3 PO; +CEFP200T15 PO; -SERT-160 PO
[2024-04-19] MEDS: SODIUM CHLORIDE 0.9% 1,000 ML IV ONE (06:32)
[2024-04-19] MEDS: ASPirin 81 mg TAB PO ONE (06:36)
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
--- NOTE | 2024-04-19 06:53 | ECG ---
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
[2024-04-19 07:01] LABS: Eosinophils # (auto) 0.1 10 ^3/uL (0-0.8); Hemoglobin 11.7 g/dL (13.5-17.5); Lymphocytes # (auto) 1.9 10 ^3/uL (0.4-5.4); Red Cell Distribution Width 18.8 % (11.8-14.3); White Blood Cell 8.3 10^3/uL (4.4-10.8)
[2024-04-19 07:03] LABS: Basophils # (auto) 0.1 10 ^3/uL (0-0.2); Basophils % (auto) 0.6 % (0.0-2.0); Eosinophils % (auto) 1.3 % (0.0-7.0); Hematocrit 36.6 % (41.0-53.0); Lymphocytes % (auto) 23.3 % (10.0-50.0); Mean Corpuscular Hemoglobin 21.9 pg (28.0-32.0); Mean Corpuscular Volume 68.6 fL (80.0-100.0); Monocytes # (auto) 0.5 10 ^3/uL (0-1.3); Monocytes % (auto) 6.5 % (0.0-12.0); Neutrophils # (auto) 5.6 10 ^3/uL (1.6-8.6); Neutrophils % (auto) 68.3 % (37.0-80.0); Nucleated Red Blood Cells % 0.1 %; Platelet Count (auto) 360 10^3/uL (140-450); Red Blood Cells 5.33 10^6/uL (4.5-5.90)
--- NOTE | 2024-04-19 07:05 | ECG ---
[facility] Test Date: 2024-04-19 Test Time: 05:47:18 Pat Name: PHILIPP ALBERTS Department: ER Room: 0237T Gender: M Health Associate: : 1990 Requested By: EMERGENCY EMERGENCY Order Number: [id number] Reading MD: Rod Paredes Measurements Intervals [place] Rate: 65 P: 45 HI: 158 QRS: 95 QRSD: 101 T: 78 QT: 419 QTc: 436 Interpretive Statements Sinus rhythm Borderline right axis deviation Consider anterior infarct Minimal ST elevation, inferior leads Baseline wander in lead(s) V4 Electronically Signed On 04-24-2024 14:22:29 PDT by Rod Paredes Please click the below link to view image of tracing.
[2024-04-19 07:16] LABS: INR 1.12 (0.9-1.15); Partial Thromboplastin Time 30.8 SEC (24.5-34.5); Prothrombin Time 11.8 sec (9.3-11.8)
[2024-04-19 07:27] LABS: Alanine Aminotransferase 36 U/L (7-40); Albumin 3.9 g/dL (3.2-4.8); Alkaline Phosphatase 133 U/L (46-116); Anion Gap 4 (5-15); Aspartate Aminotransferase 31 U/L (13-40); BUN/Creatinine Ratio 18.1 (10.0-20.0); Blood Urea Nitrogen 13 mg/dL (9-23); Calcium 9.4 mg/dL (8.7-10.4); Carbon Dioxide 26 mmol/L (20-31); Chloride 105 mmol/L (98-107); Glucose 88 mg/dL (74-106); Magnesium 1.7 mg/dL (1.6-2.6); Potassium 4.2 mmol/L (3.5-5.1); Sodium 135 mmol/L (136-145)
[2024-04-19 07:28] LABS: Bilirubin, Total 0.2 mg/dL (0.2-1.0); Total Protein 8.3 g/dL (5.7-8.2)
[2024-04-19 07:32] LABS: Urine Bacteria None Seen /hpf (None Seen)
[2024-04-19 07:37] LABS: Urine Blood 1+ /uL (Negative); Urine Clarity Turbid (Clear); Urine Color Colorless (Yellow); Urine Mucus FEW (None Seen); Urine Protein, UAD 1+ (Negative); Urine Specific Gravity 1.025 (1.001-1.035); Urine Urobilinogen Normal (Negative); Urine WBC 377 /hpf (0 - 3); Urine WBC Clumps PRESENT /hpf (None Seen)
--- NOTE | 2024-04-19 07:39 | DVH ---
XY CHEST PORTABLE, HISTORY: cp COMPARISON: XY CHEST PORTABLE on DOS: 03/29/24, XY CHEST PORTABLE on DOS: 09/10/23, CHEST PORTABLE on D OS: 04/15/20 XY CHEST PORTABLE on DOS: 03/29/24, XY CHEST PORTABLE on DOS: 09/10/23, CHEST PORTABLE on DOS: 04/15/20 TECHNICAL DATA: 1 view of the chest was obtained. FINDINGS: Lines and tubes: None Cardiomediastinal silhouette: normal Pulmonary vasculature: normal Lung expansion: increased Lung airspace: normal Lung interstitium: normal Pleura: normal Pneumothorax: no Bones: Unremarkable Other: no IMPRESSION: No acute intrathoracic abnormality. Emphysematous changes of the lungs.
[2024-04-19] MEDS: ONDANSETRON HCL 4 MG/2 ML VIAL IV ONE (08:06)
[2024-04-19] MEDS: MORPHINE SULFATE INJ 2 MG/ml SYRG IV ONE (08:07)
[2024-04-19] MEDS: cefTRIAXone 1GM/50ML D5W 50 ML IV ONE (08:43)
[2024-04-19] MEDS: IOHEXOL 300 MG/ML 100ML BOTTLE IJ ONE (09:14)
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
[2024-04-19] MEDS: IPRATROPIUM BROM 0.5 MG/2.5ML INH SOL NEB ONE (12:09)
[2024-04-19] MEDS: ALBUTEROL SULF 2.5 MG/0.5ML(0.5%) NEB SOLN NEB ONE (12:09)
[2024-04-19] MEDS ORDERED: ONDANSETRON HCL 4 MG/2 ML VIAL IV PRN (13:30)
[2024-04-19] MEDS ORDERED: MORPHINE SULFATE INJ 2 MG/ml SYRG IV PRN (13:30)
[2024-04-19] MEDS ORDERED: NITROGLYCERIN 0.4 MG SL TAB SL PRN (13:30)
[2024-04-19] MEDS ORDERED: ACETAMINOPHEN 325 MG TAB PO PRN (13:30)
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
[2024-04-19] MEDS: SODIUM CHLOR 0.9% PF (SALINE LOCK) 10ML VIAL/SYR IV SCH (14:07)
[2024-04-19] MEDS: MORPHINE SULFATE INJ 2 MG/ml SYRG IV PRN (14:28)
--- NOTE | 2024-04-19 14:46 | DVH ---
EXAM: US BILAT LOWER DVT Clinical History: R/O DVT Comparison: VENOUS DVT BILAT on DOS: 08/03/19 Technique: Duplex Doppler evaluation of the deep venous systems of both lower extremities from the common femora l veins to the popliteal veins including color Doppler and spectral/pulsed waveform analysis was perf ormed. Findings: No visible intraluminal venous thrombus. No evidence of incompressibility or abnormal color or spectr al Doppler flow visualized in the deep bilateral lower extremity veins. Proximal greater saphenous ve ins are grossly unremarkable. Impression: 1. No sonographic evidence of deep venous thrombosis throughout the bilateral lower extremities from the popliteal veins to the common femoral veins.
[2024-04-19] MEDS: ALBUTEROL SULF 2.5 MG/0.5ML(0.5%) NEB SOLN NEB PRN (18:49)
[2024-04-19] MEDS: BUDESONIDE (INHALATION) 0.5 MG/2 ML NEB NEB SCH (18:49)
[2024-04-19] MEDS: methylPREDNISolone SOD SUCC 40 MG/ML VL IV SCH (22:20)
[2024-04-19] MEDS: HYDROcodone-ACET 10/325MG TAB PO PRN (22:20)
[2024-04-20] VITALS (13 sets, daily range): BP systolic 99–121; BP diastolic 49–70; PULSE 47–83; RESP 16–20; TEMP 97.3–98.3; O2SAT 94–100
[2024-04-20 06:03] LABS: Basophils # (auto) 0 10 ^3/uL (0-0.2); Basophils % (auto) 0.2 % (0.0-2.0); Eosinophils # (auto) 0 10 ^3/uL (0-0.8); Hematocrit 35.2 % (41.0-53.0); Lymphocytes # (auto) 0.6 10 ^3/uL (0.4-5.4); Lymphocytes % (auto) 10.7 % (10.0-50.0); Mean Corpuscular Hemoglobin 21.6 pg (28.0-32.0); Mean Corpuscular Hgb Conc. 31.3 g/dL (32.0-36.0); Mean Corpuscular Volume 68.9 fL (80.0-100.0); Monocytes # (auto) 0 10 ^3/uL (0-1.3); Monocytes % (auto) 0.7 % (0.0-12.0); Neutrophils # (auto) 5.3 10 ^3/uL (1.6-8.6); Neutrophils % (auto) 88.4 % (37.0-80.0); Nucleated Red Blood Cells % 0.1 %; Platelet Count (auto) 338 10^3/uL (140-450); Red Blood Cells 5.11 10^6/uL (4.5-5.90); Red Cell Distribution Width 18.5 % (11.8-14.3)
[2024-04-20 06:22] LABS: Alanine Aminotransferase 27 U/L (7-40); Albumin 3.8 g/dL (3.2-4.8); Alkaline Phosphatase 98 U/L (46-116); Anion Gap 6 (5-15); Aspartate Aminotransferase 15 U/L (13-40); BUN/Creatinine Ratio 12.3 (10.0-20.0); Blood Urea Nitrogen 8 mg/dL (9-23); Calcium 9.7 mg/dL (8.7-10.4); Carbon Dioxide 24 mmol/L (20-31); Chloride 105 mmol/L (98-107); Glucose 132 mg/dL (74-106); Potassium 4.6 mmol/L (3.5-5.1); Sodium 135 mmol/L (136-145)
[2024-04-20 06:23] LABS: Bilirubin, Total 0.2 mg/dL (0.2-1.0); Total Protein 8.2 g/dL (5.7-8.2)
[2024-04-20] MEDS: IPRATROPIUM BROM 0.5 MG/2.5ML INH SOL NEB PRN (09:17)
[2024-04-20] MEDS: ENOXAPARIN SOD 30 MG/0.3 ML SYRINGE SC SCH (09:28)
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
[2024-04-20] MEDS: DOCUSATE SOD 100 MG CAP PO PRN (21:14)
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
[2024-04-20] MEDS: HYDROcodone-ACET 5/325MG TAB PO PRN (23:53)
[2024-04-21] VITALS (14 sets, daily range): BP systolic 114–125; BP diastolic 55–68; PULSE 46–88; RESP 16–20; TEMP 97.1–98.5; O2SAT 98–100
[2024-04-21 08:51] LABS: Hepatitis B Surface Antigen Negative (Negative)
[2024-04-21 09:12] LABS: Hepatitis C Antibody Negative (Negative)
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
--- NOTE | 2024-04-21 16:24 | DVHINCON2 ---
Date of service: Apr 21, 2024 Referring Physician Hospitalist Reason for Consultation routine SPT exchange History of Present Illness Patient has neurogenic bladder and undergoes routine suprapubic catheter exchange per his family or home health nurse. Family History: Cerebrovascular accident (CVA) G8 MOTHER Stroke G8 MOTHER Allergies: Coded Allergies: NO KNOWN ALLERGIES (Unverified , 08/03/19) Home Meds Active Scripts Cefpodoxime Proxetil (Cefpodoxime Proxetil) 200 Mg Tab, 1 TAB PO BID for 5 Days, #10 TAB Prov:TIFFANY ALLRED MD 04/02/24 Oxybutynin Chloride (Ditropan Xl) 10 Mg Tab, 10 MG PO DAILY for 60 Days, #60 TAB Prov:Shaniqua Stewart 04/15/20 Ferrous Sulfate (Ferrous Sulfate) 325 Mg Tab, 325 MG PO BIDWM, #30 TAB Prov:JYOTI ALONSO MD 08/08/19 Reported Medications Tizanidine HCl (Tizanidine Hydrochloride) 4 Mg Cap, 1 TAB PO TID PRN for CHRONIC PAIN SYNDROME 11/01/23 Hydrocodone-Acetaminophen (Hydrocodone Bitartrate/AC 10-325 mg) 1 Tab Tab, 1 TAB PO Q8HR PRN for CHRONIC ACUTE PAIN 11/01/23 Fluticasone-Salmeterol (Advair Diskus 250/50) 1 Puff Ih, 1 PUFF INH BID 11/01/23 Acetaminophen (Acetaminophen Extra Stren) 500 Mg Tab, 1 TAB PO TID PRN for PAIN 11/01/23 Ibuprofen (Ibuprofen) 600 Mg Tab, 1 TAB PO Q8HR PRN for PAIN for 7 Days, #21 11/01/23 Albuterol Sulfate (Albuterol Sulfate Hfa) 108 Mcg/Act Aer, 2 PUFF INH QID 09/12/23 Albuterol Sulfate (Albuterol Sulfate) 0.083 % Neb, 1 PUFF NEB QID PRN 09/12/23 Beclomethasone Dipropionate (Qvar Redihaler) 80 Mcg/Act Aer, 2 PUFF INH BID 09/12/23 Alprazolam (Alprazolam) 0.5 Mg Tab, 1 PO DAILY 09/10/23 Trazodone Hcl (Trazodone Hcl) 50 Mg Tab, 1 TAB PO HS 3/18/24 Methocarbamol (Methocarbamol) 750 Mg Tab, 750 MG PO TID, TAB 02/03/15 Temazepam (Temazepam) 30 Mg Cap, 1 CAP PO QPM, #30 CAP 1 Refill 02/03/15 Bisacodyl (Bisac-Evac) 10 Mg Sup, #30 10/09/13 Docusate Sodium (Docusoft S) 100 Mg Cap, #60 10/09/13 Cyclobenzaprine Hcl (Cyclobenzaprine Hcl) 5 Mg Tab, #90 10/09/13 Vital Signs Vital Signs Date Time Temp Pulse Resp B/P (MAP) Pulse Ox O2 Delivery O2 Flow Rate FiO2 04/21/24 13:00 98.2 54 20 120/64 (82) 100 98.2 04/21/24 10:00 Room Air* 0 21 Labs/Diagnostic Data Labs Test 04/20/24 05:17 04/19/24 07:04 04/19/24 07:00 04/19/24 06:01 Range/Units White Blood Count 6.0 # 4.4-10.8 10^3/uL Red Blood Count 5.11 4.5-5.90 10^6/uL Hemoglobin 11.0 L 13.5-17.5 g/dL Hematocrit 35.2 L 41.0-53.0 % Mean Corpuscular Volume 68.9 L 80.0-100.0 fL Mean Corpuscular Hemoglobin 21.6 L 28.0-32.0 pg Mean Corpuscular Hemoglobin Concent 31.3 L 32.0-36.0 g/dL Red Cell Distribution Width 18.5 H 11.8-14.3 % Platelet Count 338 140-450 10^3/uL Mean Platelet Volume 7.7 6.9-10.8 fL Neutrophils (%) (Auto) 88.4 H 37.0-80.0 % Lymphocytes (%) (Auto) 10.7 10.0-50.0 % Monocytes (%) (Auto) 0.7 0.0-12.0 % Eosinophils (%) (Auto) 0.0 0.0-7.0 % Basophils (%) (Auto) 0.2 0.0-2.0 % Neutrophils # (Auto) 5.3 1.6-8.6 10 ^3/uL Lymphocytes # (Auto) 0.6 0.4-5.4 10 ^3/uL Monocytes # (Auto) 0 0-1.3 10 ^3/uL Eosinophils # (Auto) 0 0-0.8 10 ^3/uL Basophils # (Auto) 0 0-0.2 10 ^3/uL Nucleated Red Blood Cells 0.1 % Sodium Level 135 L 136-145 mmol/L Potassium Level 4.6 3.5-5.1 mmol/L Chloride Level 105 98-107 mmol/L Carbon Dioxide Level 24 20-31 mmol/L Anion Gap 6 5-15 Blood Urea Nitrogen 8 L 9-23 mg/dL Creatinine 0.65 L 0.700-1.30 mg/dL Glomerular Filtration Rate Calc 128 >90 mL/min BUN/Creatinine Ratio 12.3 10.0-20.0 Serum Glucose 132 H 74-106 mg/dL Calcium Level 9.7 8.7-10.4 mg/dL Total Bilirubin 0.2 0.2-1.0 mg/dL Aspartate Amino Transferase (AST) 15 13-40 U/L Alanine Aminotransferase (ALT) 27 7-40 U/L Alkaline Phosphatase 98 46-116 U/L Total Protein 8.2 5.7-8.2 g/dL Albumin 3.8 3.2-4.8 g/dL Hepatitis B Surface Antigen Negative Negative Hepatitis C Antibody Negative Negative Troponin I High Sensitivity 4 </=54 ng/L Urine Color Colorless Yellow Urine Clarity Turbid H Clear Urine pH 7.0 5.0-9.0 Urine Specific [place] 1.025 1.001-1.035 Urine Protein 1+ H Negative Urine Ketones Trace Negative Urine Blood 1+ H Negative /uL Urine Nitrite 2+ H Negative Urine Bilirubin Negative Negative Urine Urobilinogen Normal Negative mg/dL Urine Leukocyte Esterase 3+ Negative /uL Urine RBC 37 0 - 3 /hpf Urine WBC 377 0 - 3 /hpf Urine WBC Clumps Present None Seen /hpf Urine Squamous Epithelial Cells None seen <5 /hpf Urine Bacteria None seen None Seen /hpf Urine Mucus Few None Seen Urine Glucose Normal Normal mg/dL Prothrombin Time 11.8 9.3-11.8 sec Prothrombin Time INR 1.12 0.9-1.15 Activated Partial Thromboplast Time 30.8 24.5-34.5 SEC D-Dimer, Quantitative 0.29 0.0-0.49 mg/L FEU Magnesium Level 1.7 1.6-2.6 mg/dL Thyroid Stimulating Hormone (TSH) 1.54 0.55-4.78 uIU/mL Microbiology Date/Time Source Procedure Growth Status 04/19/24 21:57 Nose MRSA Screen - Final Complete Assessment Chronic SPT Plan/Recommendation Routine exchange of SPT to be done per Nursing staff Plan discussed with: Patient, Other ANDREA NIETO MD Apr 21, 2024 16:24
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
--- NOTE | 2024-04-21 21:26 | DVHPN2 ---
Progress Note - Dictate Date Seen: Apr 21, 2024 Medical Necessity Reason Pt with a Central, PICC or Fol: Yes The following are medically ne: Chavez Catheter (SUPRAPUBIC) Reason for chavez catheter: Strict I&O Subjective Patient seen and examined at bedside. On room air. Overnight events reviewed. vital signs Vital Sign Date Time Temp Pulse Resp B/P (MAP) Pulse Ox O2 Delivery O2 Flow Rate FiO2 04/21/24 20:00 88 04/21/24 20:00 Room Air* 0 21 04/21/24 19:42 20 134/76 04/21/24 18:54 99 04/21/24 17:00 98.3 98.3 Total Intake and Output 04/20/24 04/20/24 04/21/24 15:00 23:00 07:00 Intake Total 700 ml Output Total 1225 ml 1200 ml Balance -525 ml -1200 ml medications Current Medications Medications Dose Ordered Sig/Veronica Route Start Time Stop Time Status Last Admin Dose Admin Ipratropium [place] 0.5 mg Q4HPRN PRN NEB 04/19/24 13:30 04/21/24 18:44 Albuterol 2.5 mg Q4HPRN PRN NEB 04/19/24 13:30 04/21/24 18:44 Sodium Chloride 10 ml Q8HR IV 04/19/24 14:00 04/21/24 20:59 Acetaminophen/ Hydrocodone Bitart 1 tab Q4HP PRN PO 04/19/24 13:30 04/20/24 23:53 Ondansetron HCl 4 mg Q4HP PRN IV 04/19/24 13:30 Docusate Sodium 100 mg BIDPRN PRN PO 04/19/24 13:30 04/20/24 21:14 Enoxaparin Sodium 30 mg DAILY SC 04/20/24 10:00 04/21/24 10:40 Acetaminophen 650 mg Q6HP PRN PO 04/19/24 13:30 Nitroglycerin 0.4 mg Q5MINP PRN SL 04/19/24 13:30 Morphine Sulfate 2 mg Q30M PRN IV 04/19/24 13:30 Morphine Sulfate 2 mg Q4HPRN PRN IV 04/19/24 13:45 04/21/24 19:42 Acetaminophen/ Hydrocodone Bitart 1 tab Q8HP PRN PO 04/19/24 13:45 04/21/24 14:03 Budesonide 0.5 mg BID NEB 04/19/24 22:00 04/21/24 18:44 Methylprednisolone Sodium Succinate 40 mg BID IV 04/19/24 22:00 04/21/24 20:59 objective Gen.: Patient lying in bed in no apparent distress. He is breathing comfortably on room air. Head: Normocephalic, atraumatic Eyes: EOMI/PERRLA. Ears: Normal hearing. Normal anatomy. Neck/trachea: Trachea scar. supple. Nose: Normal external anatomy. Mouth: Moist mucous membranes. Chest: Fair air entry bilaterally. Bilateral wheezing, improving. No rhonchi. Cardio vascular: Positive S1, positive S2. Regular rate and rhythm. Abdomen: Colostomy, Positive bowel sounds in all 4 quadrants. Soft, non- tender, non-distended. : Suprapubic catheter in place. Rectal: Deferred Skin: Warm, dry. Pressure ulcers. Extremities: 2+ radial pulses bilaterally. No lower extremity edema. Neuro: Awake, alert, oriented x3. Paraplegia. Cranial nerves II through XII intact. Gait not assessed. laboratory and microbiology Laboratory Tests 04/20/24 05:17 Test 04/20/24 05:17 Range/Units Serum Glucose 132 H 74-106 mg/dL Assessment/Plan Impression: Acute asthma exacerbation Dyspnea secondary to asthma exacerbation Sacral pressure ulcer Suprapubic catheter in place Emphysema Events: Improving Faint wheezing bilaterally Cont steroids Change bronchodilators [id number] while awake. Suprapubic catheter exchange. recommendations appreciated. Rest of plan as noted below. Plan: Chest x-ray imaging report reviewed. Emphysematous changes of the lungs. CT abdomen and pelvis lung windows reviewed. Prominent bullae in the bases. Ultrasound venous Doppler bilateral lower extremities reveals no acute DVT. On room air On exam bilateral wheezing Bronchodilators every 4 hours as needed for shortness of breath. Pulmicort twice daily. Continue IV Solu-Medrol. DVT prophylaxis-enoxaparin Prognosis: Poor given multiple comorbidities. Rest of plan per hospitalist and other consultants. Thank you Dr. Joel for allowing me to participate in this patient's care. Further recommendations will depend on patient's clinical course. Please do not hesitate to contact me if you have any questions or concerns. This medical document was created using an electronic medical record system with [employer] dictation system. Although this document has been carefully reviewed, there may still be some phonetic and typographical errors. These areas are purely typographical due to imperfections of the software programs, and do not reflect any compromise in the patient's medical care. Plan discussed with: Patient, Other (HARRISON Burns, RT, ) SLIME CONWAY MD Apr 21, 2024 21:26
[2024-04-22] VITALS (18 sets, daily range): BP systolic 109–155; BP diastolic 58–89; PULSE 51–97; RESP 16–20; TEMP 97.8–98.2; O2SAT 96–100
[2024-04-22] MEDS: ALBUTEROL SULF 2.5 MG/0.5ML(0.5%) NEB SOLN NEB SCH (00:18)
--- NOTE | 2024-04-22 18:36 | DVHPN2 ---
Progress Note - Dictate Date Seen: Apr 22, 2024 Medical Necessity Reason Pt with a Central, PICC or Fol: Yes The following are medically ne: Chavez Catheter (SUPRAPUBIC) Reason for chavez catheter: Strict I&O Subjective Patient seen and examined at bedside. On room air. Overnight events reviewed. vital signs Vital Sign Date Time Temp Pulse Resp B/P (MAP) Pulse Ox O2 Delivery O2 Flow Rate FiO2 04/22/24 17:00 98.0 60 18 131/82 (98) 100 98.0 04/22/24 13:51 Room Air 0.0 04/22/24 13:51 21 Total Intake and Output 04/21/24 04/21/24 04/22/24 15:00 23:00 07:00 Intake Total 400 ml 400 ml Output Total 850 ml 1450 ml Balance -450 ml -1050 ml medications Current Medications Medications Dose Ordered Sig/Veronica Route Start Time Stop Time Status Last Admin Dose Admin Ipratropium [place] 0.5 mg Q4HPRN PRN NEB 04/19/24 13:30 04/21/24 18:44 0.5 MG Sodium Chloride 10 ml Q8HR IV 04/19/24 14:00 04/22/24 10:30 10 ML Acetaminophen/ Hydrocodone Bitart 1 tab Q4HP PRN PO 04/19/24 13:30 04/20/24 23:53 1 TAB Ondansetron HCl 4 mg Q4HP PRN IV 04/19/24 13:30 Docusate Sodium 100 mg BIDPRN PRN PO 04/19/24 13:30 04/20/24 21:14 100 MG Enoxaparin Sodium 30 mg DAILY SC 04/20/24 10:00 04/22/24 10:30 30 MG Acetaminophen 650 mg Q6HP PRN PO 04/19/24 13:30 Nitroglycerin 0.4 mg Q5MINP PRN SL 04/19/24 13:30 Morphine Sulfate 2 mg Q30M PRN IV 04/19/24 13:30 Morphine Sulfate 2 mg Q4HPRN PRN IV 04/19/24 13:45 04/22/24 15:47 2 MG Acetaminophen/ Hydrocodone Bitart 1 tab Q8HP PRN PO 04/19/24 13:45 04/22/24 10:39 1 TAB Budesonide 0.5 mg BID NEB 04/19/24 22:00 04/22/24 18:31 0.5 MG Methylprednisolone Sodium Succinate 40 mg BID IV 04/19/24 22:00 04/22/24 10:29 40 MG Albuterol 2.5 mg Q4HWA NEB 04/21/24 22:00 04/22/24 18:31 2.5 MG objective Gen.: Patient lying in bed in no apparent distress. He is breathing comfortably on room air. Head: Normocephalic, atraumatic Eyes: EOMI/PERRLA. Ears: Normal hearing. Normal anatomy. Neck/trachea: Trachea scar. supple. Nose: Normal external anatomy. Mouth: Moist mucous membranes. Chest: Fair air entry bilaterally. Bilateral wheezing, improving. No rhonchi. Cardio vascular: Positive S1, positive S2. Regular rate and rhythm. Abdomen: Colostomy, Positive bowel sounds in all 4 quadrants. Soft, non- tender, non-distended. : Suprapubic catheter in place. Rectal: Deferred Skin: Warm, dry. Pressure ulcers. Extremities: 2+ radial pulses bilaterally. No lower extremity edema. Neuro: Awake, alert, oriented x3. Paraplegia. Cranial nerves II through XII intact. Gait not assessed. laboratory and microbiology Laboratory Tests 04/20/24 05:17 Test 04/20/24 05:17 Range/Units Serum Glucose 132 H 74-106 mg/dL Assessment/Plan Impression: Acute asthma exacerbation Dyspnea secondary to asthma exacerbation Sacral pressure ulcer Suprapubic catheter in place Emphysema Events: Breathing on room air No respiratory distress. Continue steroids Continue bronchodilators Patient is stable for discharge from the pulmonary standpoint. Labs and imaging reviewed. Plan: Chest x-ray imaging report reviewed. Emphysematous changes of the lungs. CT abdomen and pelvis lung windows reviewed. Prominent bullae in the bases. Ultrasound venous Doppler bilateral lower extremities reveals no acute DVT. On room air Bronchodilators every 4 hours as needed for shortness of breath. Pulmicort twice daily. Continue IV Solu-Medrol. DVT prophylaxis-enoxaparin Prognosis: Guarded given multiple comorbidities. Rest of plan per hospitalist and other consultants. Thank you Dr. Joel for allowing me to participate in this patient's care. Further recommendations will depend on patient's clinical course. Please do not hesitate to contact me if you have any questions or concerns. This medical document was created using an electronic medical record system with [employer] dictation system. Although this document has been carefully reviewed, there may still be some phonetic and typographical errors. These areas are purely typographical due to imperfections of the software programs, and do not reflect any compromise in the patient's medical care. Dietary Evaluation Review Comments: 1) Consider MERRICK 1 okt BID for wounds 2) Continue current plan of care Expected Outcomes/Goals: F/U in 3-5 days Plan discussed with: Patient, Other (RN) SLIME CONWAY MD Apr 22, 2024 18:36
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
[2024-04-22] MEDS ORDERED: METH4PAK PO (18:58)
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
== END 2024-04-22 21:19 | disposition home or self-care (01) | DRG 141 ==
LOC: EDBD 05:44 → ER 05:44 → TELE 13:23 → TELE-EAST 21:52
PROVIDERS: ADMIT Nurse Practitioner Family; ATTEND Internal Medicine
DX: J45.901 Unspecified asthma with (acute) exacerbation (principal); L89.154 Pressure ulcer of sacral region, stage 4; G82.20 Paraplegia, unspecified; N12 Tubulo-interstitial nephritis, not specified as acute or chronic; K56.0 Paralytic ileus; D50.9 Iron deficiency anemia, unspecified; R00.1 Bradycardia, unspecified; N31.9 Neuromuscular dysfunction of bladder, unspecified; J43.9 Emphysema, unspecified; F32.A Depression, unspecified; N30.20 Other chronic cystitis without hematuria; Z93.3 Colostomy status; Z86.718 Personal history of other venous thrombosis and embolism; Z86.711 Personal history of pulmonary embolism; Z95.828 Presence of other vascular implants and grafts; Z82.3 Family history of stroke; Z79.899 Other long term (current) drug therapy; Z79.1 Long term (current) use of non-steroidal anti-inflammatories (NSAID); Z68.1 Body mass index [BMI] 19.9 or less, adult
CPT/HCPCS: 36415; 71045; 74177; 80053; 81001; 83735; 84443; 84484; 85025; 85379; 85610; 85730; 86803; 87081; 87340; 93005; 93306; 93970; 94640; G0378; J2405